=== PATIENT | female | born 1965 | race Caucasian/White ===

== ENCOUNTER 2016-06-08 13:30 | Observation (INO) | payer OTHER ==
[~2016-06-08] VITALS: Ht 162.6 cm; Wt 75.0 kg
[~2016-06-08 13:30] MED LIST: OXYC-57 PO
[2016-06-08] MEDS ORDERED: SODIUM CHLORIDE 0.9% 1000ML 1,000 ML IV STA (14:30)
[2016-06-08 14:48] LABS: BASO % 0.3 %; BASO ABS # 0.03 K/uL (0-0.2); COMPLETE YES; EOS % 1.1 %; HEMATOCRIT 40.7 % (37-47); IG% 0.2 %; LYMPH % 24.9 %; LYMPH ABS # 2.35 K/uL (1.2-3.4); MEAN CELL VOLUME 88.3 fL (80-100); MEAN CORPUSCULAR HEMOGLOBIN 30.2 pg (25-34); MEAN CORPUSCULAR HGB CONC 34.2 g/dl (32-36); MEAN PLATELET VOLUME 9.6 fL (7.4-10.4); NEUT % 66.5 %; PLATELET COUNT 301 K/uL (130-400); RED BLOOD COUNT 4.61 M/uL (4.2-5.4); WHITE BLOOD COUNT 9.42 K/uL (4.8-10.8)
[2016-06-08 14:58] LABS: PROTHROMBIN TIME (PATIENT) 10.8 SECONDS (9.0-12.0)
[2016-06-08 14:58] LABS: URINE APPEARANCE CLEAR (CLEAR); URINE BILIRUBIN NEG (NEG); URINE COLOR YELLOW; URINE NITRITE NEG (NEG); URINE PH 5.5 (4.5-7.5); URINE SPECIFIC GRAVITY 1.026 (1.000-1.030); UROBILINOGEN NEG (NEG)
[2016-06-08 15:06] LABS: MANUAL MICROSCOPIC REQUIRED? NO; REVIEW REQ? YES
[2016-06-08 15:08] LABS: ALT/SGPT 22 U/L (12-78); BLOOD UREA NITROGEN 16 mg/dl (7-18); BUN/CREATININE RATIO 18.8 (10-20); CALCIUM 9.1 mg/dl (8.5-10.1); CARBON DIOXIDE 27 mmol/L (21-32); CHLORIDE 108 mmol/L (98-107); CREATININE 0.83 mg/dl (0.60-1.20); GLUCOSE 109 mg/dl (70-99); POTASSIUM 3.6 mmol/L (3.5-5.1); SODIUM 145 mmol/L (136-145)
[2016-06-08 15:11] LABS: ALKALINE PHOSPHATASE 87 U/L (45-117); AST/SGOT 13 U/L (15-37)
[2016-06-08] MEDS ORDERED: OPTIRAY 320 IV PRN (16:00)
--- NOTE | 2016-06-08 16:05 | DIAGNOSTIC IMAGING REPORT ---
CT OF THE ABDOMEN AND PELVIS WITH CONTRAST CLINICAL HISTORY: Right lower quadrant abdominal pain. GI bleed. COMPARISON STUDY: None. TECHNIQUE: Following IV administration of 93 mL of Optiray-320, axial images of the abdomen and pelvis were obtained from the lung bases to the proximal femurs. Images were reviewed in the axial, sagittal, and coronal planes. IV contrast was administered without complication. CT DOSE: 1018.58 mGycm FINDINGS: There is mild elevation of the left hemidiaphragm. The liver, spleen, adrenal glands, kidneys and pancreas are unremarkable. There is no pancreatic or biliary ductal dilatation. The caliber and wall thickness of small and large bowel are normal. The appendix is normal. There is no evidence for a bowel obstruction. There is no lymphadenopathy. Skeletal structures are unremarkable. Major vasculature of the abdomen and pelvis is patent. IMPRESSION: 1. No acute process within the abdomen or pelvis. Normal appendix. 2. Mild elevation of the left hemidiaphragm. Electronically signed by: Marcell Luna M.D. 06/08/2016 4:04 PM Dictated Date/Time: 06/08/2016 3:59 PM
[2016-06-08] MEDS ORDERED: ACETAMINOPHEN 325 MG TAB PO PRN (17:45)
[2016-06-08] MEDS ORDERED: POLYETHYLENE (MIRALAX) 17 GM PACK PO PRN (17:45)
[2016-06-08] MEDS ORDERED: ONDANSETRON INJ 2 MG/ML 2 ML VIAL IV PRN (17:45)
[2016-06-08] MEDS ORDERED: ALUMINUM/MAGNESIUM/SIMETH (MAALOX MAX) 30 ML UDC PO PRN (17:45)
[2016-06-08] MEDS ORDERED: HydrALAZINE HCL 20 MG/ML VIAL IV. PRN (17:45)
[2016-06-08] MEDS ORDERED: MAGNESIUM HYDROXIDE SUSP 30 ML UDC PO PRN (17:45)
[2016-06-08] MEDS ORDERED: LORAZEPAM 2 MG/ML 1 ML VIAL IV PRN (17:45)
--- NOTE | 2016-06-08 18:01 | History and Physical ---
History & Physical Date & Time of Service: Jun 08, 2016 at 17:46 Chief Complaint: Pooping Blood Primary Care Physician: No Doctor, Assigned History of Present Illness Source: patient, family, clinic records, hospital records Patient is a pleasant 51 y/o female, with no significant PMHx, who presented to the ED because of GI bleed x1 day. According to patient, she noticed bright red bleeding w/ bowel movement that started on 06/07. She had 3 bowel movement yesterday, all with blood present. This morning she had a BM, with no blood. After work, she had another BM with blood present again. She notes her BMs are loose. She denies any dark/tarry stools. She has never experienced anything like this before. She denies h/o of colonoscopy. Patient denies any fever, chills, sweats, lightheadedness, dizziness, vision changes, CP, palpitations, edema, SOB, wheezing, cough, abdominal pain, nausea, vomiting, diarrhea, urinary symptoms, melena, numbness/tingling, weakness, muscle/joint pain, anxiety/depression, new skin discoloration/changes. Past Medical/Surgical History Surgical hx: 1. Family History Denies any significant family history Social History Smoking Status: Never Smoker Alcohol Use: occasionally Marital Status: Housing status: lives with family Occupational Status: employed Multi-Drug Resistant Organisms History of MDRO: No Allergies Coded Allergies: No Known Allergies (Unverified , 06/08/16) Home Medications No Active Prescriptions or Reported Meds Physical Exam Vital Signs Date Time Temp Pulse Resp B/P Pulse Ox O2 Delivery O2 Flow Rate FiO2 06/08/16 16:43 92 18 202/112 94 Room Air 179/101 06/08/16 14:56 87 06/08/16 14:50 82 171/89 95 06/08/16 13:44 36.9 83 18 177/95 96 Room Air General Appearance: no apparent distress Head: normocephalic, atraumatic Eyes: normal inspection, PERRL ENT: hearing grossly normal Neck: supple Respiratory/Chest: lungs clear, no respiratory distress, no accessory muscle use Cardiovascular: regular rate, rhythm Abdomen/GI: normal bowel sounds, non tender, soft Back: normal inspection Extremities/Musculoskelatal: no calf tenderness, no pedal edema Neurologic/Psych: alert, oriented x 3, + pertinent finding (anxious/tearful) Skin: normal color, warm/dry, no rash Diagnostics Laboratory Results Results Past 24 Hours Test 06/08/16 14:22 06/08/16 14:30 Range/Units Urine Color YELLOW Urine Appearance CLEAR CLEAR Urine pH 5.5 4.5-7.5 Urine Specific [place] 1.026 1.000-1.030 Urine Protein NEG NEG Urine Glucose (UA) NEG NEG Urine Ketones NEG NEG Urine Occult Blood NEG NEG Urine Nitrite NEG NEG Urine Bilirubin NEG NEG Urine Urobilinogen NEG NEG Urine Leukocyte Esterase SMALL NEG Urine WBC (Auto) 1-5 0-5 /hpf Urine RBC (Auto) 0-4 0-4 /hpf Urine Hyaline Casts (Auto) 0 0-5 /lpf Urine Epithelial Cells (Auto) 5-10 0-5 /lpf Urine Bacteria (Auto) NEG NEG Urine Crystals CALCIUM OXALATE NONE PRSENT White Blood Count 9.42 4.8-10.8 K/uL Red Blood Count 4.61 4.2-5.4 M/uL Hemoglobin 13.9 12.0-16.0 g/dL Hematocrit 40.7 37-47 % Mean Corpuscular Volume 88.3 80-100 fL Mean Corpuscular Hemoglobin 30.2 25-34 pg Mean Corpuscular Hemoglobin Concent 34.2 32-36 g/dl Platelet Count 301 130-400 K/uL Mean Platelet Volume 9.6 7.4-10.4 fL Neutrophils (%) (Auto) 66.5 % Lymphocytes (%) (Auto) 24.9 % Monocytes (%) (Auto) 7.0 % Eosinophils (%) (Auto) 1.1 % Basophils (%) (Auto) 0.3 % Neutrophils # (Auto) 6.26 1.4-6.5 K/uL Lymphocytes # (Auto) 2.35 1.2-3.4 K/uL Monocytes # (Auto) 0.66 0.11-0.59 K/uL Eosinophils # (Auto) 0.10 0-0.5 K/uL Basophils # (Auto) 0.03 0-0.2 K/uL RDW Standard Deviation 43.4 36.4-46.3 fL RDW Coefficient of Variation 13.4 11.5-14.5 % Immature Granulocyte % (Auto) 0.2 % Immature Granulocyte # (Auto) 0.02 0.00-0.02 K/uL Prothrombin Time 10.8 9.0-12.0 SECONDS Prothromb Time International Ratio 1.0 0.9-1.1 Activated Partial Thromboplast Time 26.6 21.0-31.0 SECONDS Partial Thromboplastin Ratio 1.0 Sodium Level 145 136-145 mmol/L Potassium Level 3.6 3.5-5.1 mmol/L Chloride Level 108 98-107 mmol/L Carbon Dioxide Level 27 21-32 mmol/L Anion Gap 10.0 3-11 mmol/L Blood Urea Nitrogen 16 7-18 mg/dl Creatinine 0.83 0.60-1.20 mg/dl Est Creatinine Clear Calc Drug Dose 96.5 ml/min Estimated GFR () 94.6 Estimated GFR (Non- 81.6 BUN/Creatinine Ratio 18.8 10-20 Random Glucose 109 70-99 mg/dl Calcium Level 9.1 8.5-10.1 mg/dl Total Bilirubin 0.5 0.2-1 mg/dl Direct Bilirubin < 0.1 0-0.2 mg/dl Aspartate Amino Transf (AST/SGOT) 13 15-37 U/L Alanine Aminotransferase (ALT/SGPT) 22 12-78 U/L Alkaline Phosphatase 87 45-117 U/L Total Protein 7.8 6.4-8.2 gm/dl Albumin 4.6 3.4-5.0 gm/dl Lipase 165 73-393 U/L Diagnostic Radiology CT OF THE ABDOMEN AND PELVIS WITH CONTRAST CLINICAL HISTORY: Right lower quadrant abdominal pain. GI bleed. COMPARISON STUDY: None. TECHNIQUE: Following IV administration of 93 mL of Optiray-320, axial images of the abdomen and pelvis were obtained from the lung bases to the proximal femurs. Images were reviewed in the axial, sagittal, and coronal planes. IV contrast was administered without complication. CT DOSE: 1018.58 mGycm FINDINGS: There is mild elevation of the left hemidiaphragm. The liver, spleen, adrenal glands, kidneys and pancreas are unremarkable. There is no pancreatic or biliary ductal dilatation. The caliber and wall thickness of small and large bowel are normal. The appendix is normal. There is no evidence for a bowel obstruction. There is no lymphadenopathy. Skeletal structures are unremarkable. Major vasculature of the abdomen and pelvis is patent. IMPRESSION: 1. No acute process within the abdomen or pelvis. Normal appendix. 2. Mild elevation of the left hemidiaphragm. Electronically signed by: Marcell Luna M.D. 06/08/2016 4:04 PM Dictated Date/Time: 06/08/2016 3:59 PM The status of this report is Signed. Draft = Not yet reviewed or approved by Radiologist. Signed = Reviewed and approved by Radiologist. EKG SARA LOMAX ID:[id number] 08-JUN-2016 14:41:22 [facility] Normal sinus rhythm Minimal voltage criteria for LVH, may be normal variant Borderline ECG No previous ECGs available 25mm/s 10mm/mV 150Hz 8.0 SP2 12SL 241 HD ARABELLA: 12 Referred by: Referred Self Unconfirmed Vent. rate 75 BPM NM interval 152 ms QRS duration 100 ms QT/QTc 424/473 ms P-R-T axes 24 -14 34 1965 (51 yr) Female Room: Loc: End Lathe Operator:RAMIN Garcia ind: Impression Assessment and Plan 51 y/o female, with no significant PMHx, who presented to the ED because of GI bleed x1 day. GI bleed: - Admit to med/surg - Hgb 13.9 at admission, repeat H&H at 2100 - Abdominal/pelvic CT- no acute processes - Stool heme occult positive in ED - Consult GI, appreciate recommendations -- ED physician spoke w/ GI--> plan for colonoscopy w/ Dr. Mcgraw on 06/09 -- 2L [place] tonight and 2L before 11 AM on 06/09 - Clear liquid diet - CBC tomorrow AM HTN- untreated, ?secondary to anxiousness: - IV Hydralazine PRN Anxiousness: IV Ativan 0.5 mg PRN GI Prophylaxis: Maalox PRN, IV Zofran PRN, Colace and/or Milk of Mag PRN DVT prophylaxis: GABRIEL and SCDs. Avoid chemical therapy due to GI bleed Code Status: LEVEL I, FULL Dispo: From home, lives w/ . No discharge needs anticipated Pa Physician Supervision Note: I interviewed and examined the patient. Discussed with Maria Alejandra Carpenter PAC and agree with findings and plan as documented in the note. Any exceptions or clarifications are listed here: None Pt presents with BRBPR, no pain, never had a colonoscopy, never been told she had hemorrhoids, hgb stable, GI medicine will have eval tomorrow. vitals are stable car is regular, lungs are clear abdomen is benign bright red blood per rectum, likely lower bleed, trend hgb, hydrate and colonoscopy tomorrow Documented By: Roger David Level of Care Med/Surg Resuscitation Status FULL RESUSCITATION VTE Prophylaxis VTE Risk Assessment Done? Y/N: Yes Risk Level: Low Given or contraindicated: T.E.D. Stockings, SCD's
--- NOTE | 2016-06-08 18:01 | EMERGENCY ROOM VISIT NOTE ---
History Report prepared by He: Juancarlos Lira Under the Supervision of: Dr. Jamal Leon D.O. First contact with patient: 14:17 Chief Complaint: RECTAL BLEEDING Stated Complaint: POOPING BLOOD Nursing Triage Summary: Pt reports "yesterday I started pooping blood". denies blood thinners. reports it is bright red in color. reports some right lower abd pain. "it's not all the time" History of Present Illness The patient is a 51 year old female who presents to the Emergency Room with complaints of intermittent rectal bleeding starting yesterday. The patient states that she has been having runny stools that are a bright red. She states that she had two bouts yesterday, and she had one bout today. She states that this morning she had a normal bowel movement, and then after work today she had a bloody stool. She additionally is complaining of intermittent pinching abdominal pain that started yesterday. The patient denies any clots, and she states that she has never had anything like this before. She denies taking any medications including blood thinners, and she denies any other medical problems. The patient states that she has had a , and she denies any history of colonoscopies. Pt denies headache, change in vision, fevers, chest pain, shortness of breath, nausea, vomiting, and pain with urination. Source of History: patient Onset: yesterday Position: other (rectum) Quality: other (bleeding) Timing: intermittent Associated Symptoms: + abdominal pain, No melena Review of Systems See HPI for pertinent positives & negatives. A total of 10 systems reviewed and were otherwise negative. Past Medical & Surgical Medical Problems: (1) Rectal bleed Surgical Problems: (1) History of Social History Smoking Status: Never Smoker Marital Status: Housing Status: lives with family Occupation Status: unemployed Current/Historical Medications No Active Prescriptions or Reported Meds Allergies Coded Allergies: No Known Allergies (Unverified , 06/08/16) Physical Exam Vital Signs Date Time Temp Pulse Resp B/P Pulse Ox O2 Delivery O2 Flow Rate FiO2 06/08/16 16:43 92 18 202/112 94 Room Air 179/101 06/08/16 14:56 87 06/08/16 14:50 82 171/89 95 06/08/16 13:44 36.9 83 18 177/95 96 Room Air Physical Exam GENERAL: Sitting up in bed, no acute distress, non-toxic EYE EXAM: normal conjunctiva OROPHARYNX: no exudate, no erythema, lips, buccal mucosa, and tongue normal and mucous membranes are moist NECK: supple, no nuchal rigidity, no adenopathy, non-tender LUNGS: Clear to auscultation. Normal chest wall mechanics HEART: no murmurs, S1 normal and S2 normal ABDOMEN: abdomen soft, non-tender, normo-active bowel sounds, no masses, no rebound or guarding. BACK: Back is symmetrical on inspection and there is no deformity, no midline tenderness, no CVA tenderness. RECTAL: There is heme positive stool. No hemorrhoids or fissures. SKIN: no rashes and no bruising UPPER EXTREMITIES: upper extremities are grossly normal. LOWER EXTREMITIES: No pitting edema. NEURO EXAM: Normal sensorium, cranial nerves II-XII grossly intact, normal speech, no gross weakness of arms, no gross weakness of legs. No drift. Finger to nose intact. Medical Decision & Procedures ER Provider Diagnostic Interpretation: CT results have been interpreted by the radiologist and reviewed by me. Laboratory Results 06/08/16 14:30 Red Blood Count 4.61, Mean Corpuscular Volume 88.3, Mean Corpuscular Hemoglobin 30.2, Mean Corpuscular Hemoglobin Concent 34.2, Mean Platelet Volume 9.6, Neutrophils (%) (Auto) 66.5, Lymphocytes (%) (Auto) 24.9, Monocytes (%) (Auto) 7.0, Eosinophils (%) (Auto) 1.1, Basophils (%) (Auto) 0.3, Neutrophils # (Auto) 6.26, Lymphocytes # (Auto) 2.35, Monocytes # (Auto) 0.66, Eosinophils # (Auto) 0.10, Basophils # (Auto) 0.03 06/08/16 14:30 Test 06/08/16 14:22 06/08/16 14:30 Urine Color YELLOW Urine Appearance CLEAR (CLEAR) Urine pH 5.5 (4.5-7.5) Urine Specific [place] 1.026 (1.000-1.030) Urine Protein NEG (NEG) Urine Glucose (UA) NEG (NEG) Urine Ketones NEG (NEG) Urine Occult Blood NEG (NEG) Urine Nitrite NEG (NEG) Urine Bilirubin NEG (NEG) Urine Urobilinogen NEG (NEG) Urine Leukocyte Esterase SMALL (NEG) Urine WBC (Auto) 1-5 /hpf (0-5) Urine RBC (Auto) 0-4 /hpf (0-4) Urine Hyaline Casts (Auto) 0 /lpf (0-5) Urine Epithelial Cells (Auto) 5-10 /lpf (0-5) Urine Bacteria (Auto) NEG (NEG) Urine Crystals CALCIUM OXALATE (NONE White Blood Count 9.42 K/uL (4.8-10.8) Red Blood Count 4.61 M/uL (4.2-5.4) Hemoglobin 13.9 g/dL (12.0-16.0) Hematocrit 40.7 % (37-47) Mean Corpuscular Volume 88.3 fL (80-100) Mean Corpuscular Hemoglobin 30.2 pg (25-34) Mean Corpuscular Hemoglobin Concent 34.2 g/dl (32-36) Platelet Count 301 K/uL (130-400) Mean Platelet Volume 9.6 fL (7.4-10.4) Neutrophils (%) (Auto) 66.5 % Lymphocytes (%) (Auto) 24.9 % Monocytes (%) (Auto) 7.0 % Eosinophils (%) (Auto) 1.1 % Basophils (%) (Auto) 0.3 % Neutrophils # (Auto) 6.26 K/uL (1.4-6.5) Lymphocytes # (Auto) 2.35 K/uL (1.2-3.4) Monocytes # (Auto) 0.66 K/uL (0.11-0.59) Eosinophils # (Auto) 0.10 K/uL (0-0.5) Basophils # (Auto) 0.03 K/uL (0-0.2) RDW Standard Deviation 43.4 fL (36.4-46.3) RDW Coefficient of Variation 13.4 % (11.5-14.5) Immature Granulocyte % (Auto) 0.2 % Immature Granulocyte # (Auto) 0.02 K/uL (0.00-0.02) Prothrombin Time 10.8 SECONDS (9.0-12.0) Prothromb Time International Ratio 1.0 (0.9-1.1) Activated Partial Thromboplast Time 26.6 SECONDS (21.0-31.0) Partial Thromboplastin Ratio 1.0 Anion Gap 10.0 mmol/L (3-11) Est Creatinine Clear Calc Drug Dose 96.5 ml/min Estimated GFR () 94.6 Estimated GFR (Non- 81.6 BUN/Creatinine Ratio 18.8 (10-20) Calcium Level 9.1 mg/dl (8.5-10.1) Total Bilirubin 0.5 mg/dl (0.2-1) Direct Bilirubin < 0.1 mg/dl (0-0.2) Aspartate Amino Transf (AST/SGOT) 13 U/L (15-37) Alanine Aminotransferase (ALT/SGPT) 22 U/L (12-78) Alkaline Phosphatase 87 U/L (45-117) Total Protein 7.8 gm/dl (6.4-8.2) Albumin 4.6 gm/dl (3.4-5.0) Lipase 165 U/L (73-393) Laboratory results per my review. Medications Administered Medications (Trade) Dose Ordered Sig/Mac Route Start Time Stop Time Status Last Admin Dose Admin Sodium Chloride (Nss 1000ml) 1,000 ml @ 999 mls/hr Q1H1M STAT IV 06/08/16 14:30 06/08/16 15:30 DC 06/08/16 14:50 999 MLS/HR ECG Indication: other (rectal bleeding) Rate (beats per minute): 75 Rhythm: sinus rhythm Findings: left axis deviation, no ectopy ED Course ED COURSE: Vital signs were reviewed and showed hypertension The patients medical record was reviewed The above diagnostic studies were performed and reviewed. ED treatments and interventions as stated above. 1417: The patient was evaluated in room C9. A complete history and physical examination was performed. 1430: Sodium Chloride 1000 ml @ 999 mls/hr IV 1634: I discussed the patient's case with Dr. Mcgraw [facility] 1649: I discussed the patient's case with Dr. Wagner, Gastroenterology, and he suggests having the hospitalist put in for a colonoscopy tomorrow with Dr. Mcgraw. He suggests that the patient has 2L of GoLYTELY tonight, and 2L by tomorrow at 1100. 1653: I discussed the patient's case with Dr. David. He is going to evaluate the patient for further treatment 1705: Upon reevaluation, the patient is resting.I discussed my findings with the patient and she understands and agrees with the treatment plan. Based on the patients age, coexisting illnesses, exam and lab findings the decision to treat as an inpatient was made. The patient remained stable while under my care. The patient will be evaluated for further management. Medical Decision Differential diagnosis includes etiologies such as diverticulosis, AVM, coagulopathy, colitis, inflammatory bowel disease, malignancy, Magalie-Gutiérrez tear, esophagitis, peptic ulcer disease, variceal bleed, gastritis, epistaxis, fissure, hemorrhoids, as well as others were entertained. Patient is a 51-year-old female who presents the ER for bright red blood per rectum which has been present since yesterday. She notes she has never had this before. No previous colonoscopy. No blood thinners. Minimal pain in the right lower quadrant. CT of her abdomen pelvis was unremarkable. Vitals are stable. CBC along with BMP LFTs and bilirubin were unremarkable. Lipase is normal. Updated the patient regards to findings. Discussed case with GI and they recommended 2 L of GoLYTELY tonight and 2 L in the morning prior to 11 AM for colonoscopy in the afternoon. Updated the patient regards to my findings. She remained hemodynamically stable and were agreeable for observation overnight. Consults Time Called: 1630 Consulting Physician: Bhavesh Barker Returned Call: 1634 I discussed the patient's case with Bhavesh Barker Additional Consults: Time Called: 1645 Consulted Physician: Dr. Wagner, Gastroenterology Returned Call: 1641 Additional Comments: I discussed the patient's case with Dr. Wagner, Gastroenterology, and he suggests having the hospitalist put in for a colonoscopy tomorrow with Dr. Mcgraw. He suggests that the patient has 2L of GoLYTELY tonight, and 2L by tomorrow at 1100. Time Called: 1650 Consulted Physician: Dr. David Returned Call: 1652 Additional Comments: I discussed the patient's case with Dr. David. He is going to evaluate the patient for further treatment Impression Primary Impression: Lower GI bleed Scribe Attestation The scribe's documentation has been prepared under my direction and personally reviewed by me in its entirety. I confirm that the note above accurately reflects all work, treatment, procedures, and medical decision making performed by me. Departure Information Dispostion Being Evaluated By Hospitalist Prescriptions No Active Prescriptions or Reported Meds Referrals No Doctor, Assigned (PCP)
[2016-06-08 19:58] VITALS: BP 179/93; PULSE 88; TEMP 36.8; O2SAT 96
[2016-06-08 20:05] VITALS: BP 179/93; PULSE 88; TEMP 36.6; O2SAT 96
[2016-06-08 20:15] VITALS: BP 179/93; PULSE 88; TEMP 36.6; O2SAT 96; Ht 162.6 cm; Wt 75.0 kg
[2016-06-08 21:09] LABS: HEMATOCRIT 39.7 % (37-47)
[2016-06-08] MEDS: LAVAGE SOLUTION 4000ML PO SCH (21:51)
[2016-06-08] MEDS ORDERED: IV FLUIDS COMPLETED PRN (23:15)
[2016-06-09 00:55] VITALS: BP 177/94; PULSE 81; TEMP 37; O2SAT 98
[2016-06-09] MEDS ORDERED: LORAZEPAM INJ 0.5 MG in SYRINGE 0.75 ML IV PRN (02:30)
[2016-06-09] MEDS: LAVAGE SOLUTION 4000ML PO SCH (03:40)
[2016-06-09] MEDS ORDERED: LAVAGE SOLUTION 4000ML PO SCH (07:00)
[2016-06-09 07:26] VITALS: BP 181/91; PULSE 87; TEMP 36.7; O2SAT 96
[2016-06-09 07:26] LABS: MEAN CELL VOLUME 87.7 fL (80-100); MEAN CORPUSCULAR HEMOGLOBIN 29.6 pg (25-34); MEAN CORPUSCULAR HGB CONC 33.8 g/dl (32-36); MEAN PLATELET VOLUME 9.6 fL (7.4-10.4); PLATELET COUNT 276 K/uL (130-400); RED BLOOD COUNT 4.56 M/uL (4.2-5.4)
[2016-06-09 07:56] LABS: BUN/CREATININE RATIO 9.9 (10-20); CALCIUM 8.8 mg/dl (8.5-10.1); CREATININE 0.73 mg/dl (0.60-1.20); POTASSIUM 3.6 mmol/L (3.5-5.1)
--- NOTE | 2016-06-09 12:47 | Discharge Instructions ---
Discharge Instructions Date of Service Jun 09, 2016. Admission Reason for Admission: Rectal Bleed Discharge Discharge Diagnosis / Problem: Hematochezia Discharge Goals Goal(s): Decrease discomfort, Improve function, Increase independence Activity Recommendations Activity Limitations: resume your previous activity . Instructions / Follow-Up Instructions / Follow-Up Rectal Bleed: - During admission your bleeding has stopped and your hemoglobin (blood counts) remained within normal limits - Your colonoscopy was normal without direct visualization of a cause of the blood in your stool - Biopsies of the colon tissue was obtained and further intervention will be planned according to the report. - upon results of biopsy you will be contacted - It is possible that this could be related to small hemorrhoids that are hard to see. Diet: - Recommend increasing fiber in your diet to help soften bowel movements and make bowel movements easier. - Keep hydrated and avoid foods that tend to be constipating for you. - You may use over the counter stool softeners if needed Follow-Up: - Please follow-up with Dr. Ramsey on June 17, 2016 at 1:05 PM -- It is important to keep this appointment to get established with a family doctor. Current Hospital Diet Patient's current hospital diet: Clear Liquid Diet Discharge Diet Recommended Diet: Regular Diet Pending Studies Studies pending at discharge: yes List of pending studies: Colon Tissue Biopsy Medical Emergencies . Who to Call and When: Medical Emergencies: If at any time you feel your situation is an emergency, please call 911 immediately. . Non-Emergent Contact Non-Emergency issues call your: Primary Care Provider Call Non-Emergent contact if: you have a fever, your pain is concerning you, you have any medication questions . . "Provider Documentation" section prepared by Vero Savage. VTE Core Measure Inpt VTE Proph given/why not?: Francia Marino, SCD's
--- NOTE | 2016-06-09 14:42 | Discharge Summary ---
Discharge Summary Date of Service Jun 09, 2016. (Vero Camargo PA-C) Discharge Summary Admission Date: Jun 08, 2016 at 17:44 Discharge Date: Jun 09, 2016 Discharge Disposition: Home Principal Diagnosis: Hematochezia Procedures: 1. CT OF THE ABDOMEN AND PELVIS WITH CONTRAST CLINICAL HISTORY: Right lower quadrant abdominal pain. GI bleed. COMPARISON STUDY: None. TECHNIQUE: Following IV administration of 93 mL of Optiray-320, axial images of the abdomen and pelvis were obtained from the lung bases to the proximal femurs. Images were reviewed in the axial, sagittal, and coronal planes. IV contrast was administered without complication. CT DOSE: 1018.58 mGycm FINDINGS: There is mild elevation of the left hemidiaphragm. The liver, spleen, adrenal glands, kidneys and pancreas are unremarkable. There is no pancreatic or biliary ductal dilatation. The caliber and wall thickness of small and large bowel are normal. The appendix is normal. There is no evidence for a bowel obstruction. There is no lymphadenopathy. Skeletal structures are unremarkable. Major vasculature of the abdomen and pelvis is patent. IMPRESSION: 1. No acute process within the abdomen or pelvis. Normal appendix. 2. Mild elevation of the left hemidiaphragm. 2. COLONOSCOPY Impression: - The entire examined colon is normal. - The examined portion of the ileum was normal. - The distal rectum and anal verge are normal on retroflexion view. - The descending colon and ascending colon are normal. Biopsied. Consultations: 1. Gastroenterology (Vero Camargo PA-C) Medication Reconciliation Medication Profile: No Active Prescriptions or Reported Meds Discharge Exam Review of Systems: Constitutional: No chills, No fever ENT: No nasal symptoms, No sore throat, No trouble swallowing Respiratory: No shortness of breath Cardiovascular: No chest pain Abdomen: No GI bleeding, No constipation, No diarrhea, No nausea, No pain, No vomiting Musculoskeletal: No calf pain, No swelling Genitourinary - Female: No dysuria Neurologic: No vertigo Integumentary: No rash Physical Exam: General Appearance: WD/WN, no apparent distress Eyes: sclerae normal ENT: hearing grossly normal Neck: supple, no JVD, trachea midline Respiratory/Chest: lungs clear, normal breath sounds, no respiratory distress, no accessory muscle use Cardiovascular: regular rate, rhythm, no gallop, no murmur Abdomen / GI: normal bowel sounds, non tender, soft Extremities: no calf tenderness, no pedal edema Neurologic/Psychiatric: alert, oriented x 3 Skin: normal color, warm/dry (Vero Camargo PA-C) Hospital Course ADMISSION: Patient is a pleasant 51 y/o female, with no significant PMHx, who presented to the ED because of GI bleed x1 day. According to patient, she noticed bright red bleeding w/ bowel movement that started on 06/07. She had 3 bowel movement yesterday, all with blood present. This morning she had a BM, with no blood. After work, she had another BM with blood present again. She notes her BMs are loose. She denies any dark/tarry stools. She has never experienced anything like this before. She denies h/o of colonoscopy. Patient denies any fever, chills, sweats, lightheadedness, dizziness, vision changes, CP , palpitations, edema, SOB, wheezing, cough, abdominal pain, nausea, vomiting, diarrhea, urinary symptoms, melena, numbness/tingling, weakness, muscle/joint pain, anxiety/depression, new skin discoloration/changes. HOSPITAL COURSE: Ms. Cruz was admitted for BRBPR. GI was consulted and an order placed for bowel prep and colonoscopy which was completed on 06/09/2016. Colonoscopy without abnormal findings and biopsies obtained. No underlying cause of BRBPR appreciated. During admission, patient without further hematochezia or new development of melena. Recommendations given of consuming a diet that is easy to digest with the addition of fiber to reduce constipation and hard bowel movements. During admission, patient noted to be hypertensive however vital signs remained stable. Question of underlying anxiety/ anxiousness versus untreated hypertension. Patient is not establish with PCP but requested establishment. Utilized case management for PCP establishment with Dr. Ramsey ([facility]) on 06/17/2016. She is hemodynamically stable, no new complaints, and is optimal for discharge home with outpatient follow-up. DISPOSITION: - Discussion with GI - question vaginal bleeding as source however patient is adamant this is not the case - repeat Hemoccult negative however was positive in ED -- Would recommend outpatient gynecological exam given age and lack of outpatient follow-up previously - Continued monitoring of hypertension - as patient was hypertensive here and likely has undiagnosed hypertension - Colon biopsies pending - GI to contact patient when results available Total Time Spent: Greater than 30 minutes This includes examination of the patient, discharge planning, medication reconciliation, and communication with other providers. (Vero Camargo, SKYLAR-C) chart reviewed throughout the day and case d/w Francis Camargo extensively and multiple times today. was planning on seeing pt after colonoscopy - i was unable to get to her immediately post scope and she was quite anxious to leave the hospital - was gone before i was able to see her. agree w ms camargo's plans and GI input. as far as BP - would recommend ambulatory monitoring, may have all been stress response since predominantly systolic elevations, but also certainly if truly hypertensive was asymptomatic. would have f/u w PCP in this regard. (Jamal Rebolledo, D.O.) Discharge Instructions Please refer to the electronic Patient Visit Report (Discharge Instructions) for additional information. (Vero Camargo, SKYLAR-C) Additional Copies To Walker Ramsey M.D.
[2016-06-09] MEDS ORDERED: MIDAZOLAM HCL 1 MG/ML 2ML VIAL ONE (15:13)
--- NOTE | 2016-06-09 15:28 | History & Physical Bridge Note ---
H&P Re-Evaluation Bridge Note: I have examined the patient, reviewed the History & Physical and in the interval since the performance of the History & Physical I have noted the following changes of clinical significance: Colonoscopy for painless rectal bleeding ordered by Dr Wagner. Pt with painless rectal bleeding on one event. mild change in BMs ; pt on diet meds but no unintentional weight loss. No FH CRC; no prior colon exam AAO x3 Nl s1s2 Lungs CTA Abd soft NT/ND + BS - CCE Plan for colonoscopy today.
[2016-06-09] MEDS ORDERED: EpHEDrine SULFATE INJ 50 MG/ML AMP IV PRN (15:30)
[2016-06-09] MEDS ORDERED: ATROPINE SULFATE 0.1 MG/ML 5ML SYR IV PRN (15:30)
[2016-06-09] MEDS ORDERED: LIDOCAINE HCL 2% 2 ML VIAL (20MG/ML) ONE (15:33)
[2016-06-09] MEDS ORDERED: PROPOFOL IV EMULSION 10 MG/ML 20 ML VIAL IV ONE ×2 (15:33)
--- NOTE | 2016-06-09 15:35 | GI REPORT ---
Procedure Date: 06/09/2016 2:56 PM Procedure: Colonoscopy Indications: This is the patient's first colonoscopy, Hematochezia, No family history of colorectal cancer, No family history of colon cancer, Change in bowel habits Medicines: Propofol per Anesthesia Complications: No immediate complications. Estimated blood loss: Minimal. Estimated Blood Loss: Estimated blood loss was minimal. Procedure: Pre-Anesthesia Assessment: - Prior to the procedure, a History and Physical was performed, and patient medications and allergies were reviewed. The patient's tolerance of previous anesthesia was also reviewed. The risks and benefits of the procedure and the sedation options and risks were discussed with the patient. All questions were answered, and informed consent was obtained. Prior Anticoagulants: The patient has taken no previous anticoagulant or antiplatelet agents. ASA Grade Assessment: II - A patient with mild systemic disease. After reviewing the risks and benefits, the patient was deemed in satisfactory condition to undergo the procedure. After I obtained informed consent, the scope was passed under direct vision. Throughout the procedure, the patient's blood pressure, pulse, and oxygen saturations were monitored continuously. The Scope was introduced through the anus and advanced to the terminal ileum, with identification of the appendiceal orifice and IC valve. The colonoscopy was performed without difficulty. The patient tolerated the procedure well. The quality of the bowel preparation was good. Findings: The perianal and digital rectal examinations were normal. Pertinent negatives include normal sphincter tone, no palpable rectal lesions and no anal lesion or abnormality was detected. The colon (entire examined portion) appeared normal. The terminal ileum appeared normal. The retroflexed view of the distal rectum and anal verge was normal and showed no anal or rectal abnormalities. The descending colon and ascending colon appeared normal. Biopsies were taken with a cold forceps for histology. Estimated blood loss was minimal. Verification of patient identification for the specimen was done by the physician and train control technician using the patient's name and medical record number. Impression: - The entire examined colon is normal. - The examined portion of the ileum was normal. - The distal rectum and anal verge are normal on retroflexion view. - The descending colon and ascending colon are normal. Biopsied. Recommendation: - Await pathology results. - Repeat colonoscopy for surveillance based on pathology results. MD Isidro Porras MD 06/09/2016 3:35:20 PM This report has been signed electronically. Note Initiated On: 06/09/2016 2:56 PM I attest to the content of the Intraoperative Record and orders documented therein, exceptions below
--- NOTE | 2016-06-09 15:39 | Anesthesiology Progress Note ---
Anesthesia Post Op Note Date & Time Jun 09, 2016 at 15:39 Vital Signs Pain Intensity: 0.0 Vital Signs Past 12 Hours Date Time Temp Pulse Resp B/P Pulse Ox O2 Delivery O2 Flow Rate FiO2 06/09/16 15:29 72 16 138/81 98 Room Air 06/09/16 14:26 36.5 75 18 175/77 97 Room Air 06/09/16 08:00 Room Air 06/09/16 07:26 36.7 87 18 181/91 96 Room Air Notes Mental Status: alert / awake / arousable, participated in evaluation Pt Amnestic to Procedure: Yes Nausea / Vomiting: adequately controlled Pain: adequately controlled Airway Patency, RR, SpO2: stable & adequate BP & HR: stable & adequate Hydration State: stable & adequate Anesthetic Complications: no major complications apparent
[2016-06-09 16:34] VITALS: BP 162/79; PULSE 73; TEMP 36.6; O2SAT 95
[2016-06-09 16:45] VITALS: BP 162/79; PULSE 73; TEMP 36.6; O2SAT 95
--- NOTE | 2016-06-09 17:29 | GASTROINTESTINAL CONSULTATION ---
DATE OF CONSULTATION: 06/09/2016 REQUESTING FOR: Painless rectal bleeding. HISTORY OF PRESENT ILLNESS: Ms. Cruz is a 51-year-old white female who reports an acute onset of rectal bleeding which was painless in nature. The patient had a bowel movement and upon wiping realized there was blood on the toilet tissue and in the water. The patient had no rectal pain, anal pain or cramping associated with the symptoms The patient was in her usual state of health. The patient does not describe to health care and does not have a primary care provider and reports that she has no known medical problems. The patient did not feel lightheadedness or dizziness, but presented to the Emergency Room. She had 3 bowel movements that were bloody and today's bowel movement had no blood. She described that her bowel movements have been slightly loose recently. She, however, denies melena, hematemesis, coffee-ground emesis, odynophagia or dysphagia. She has had no prior symptoms and no prior colonoscopy. She is unaware of any family history of colorectal cancer or inflammatory bowel disease. PAST MEDICAL HISTORY: Includes . She does not report any other known past medical or surgical history. ALLERGIES: She has no known drug allergies. HOME MEDICATIONS: Her only home medication is a medication used for weight loss, although the details of this are not clear. SOCIAL HISTORY: The patient denies tobacco or alcohol use. She is , lives with her family and is currently employed. FAMILY HISTORY: Otherwise noncontributory. REVIEW OF SYSTEMS: Otherwise noncontributory based on 14-point exam except for mentioned above. The patient denies dysuria, hematuria, joint aches, unintentional weight loss, abnormal skin or hair manifestations, abnormal neurologic symptoms. PHYSICAL EXAMINATION: VITAL SIGNS: On admission to the hospital yesterday afternoon, patient's blood pressure 177/95, temperature 36.9, heart rate 83, respirations 18, 96% on room air. GENERAL: The patient is awake, alert and oriented x3. HEENT: Oral mucosa moist. There is no cervical or supraclavicular adenopathy. I do not appreciate thyromegaly. Sclerae are anicteric. Conjunctiva moist. HEART: Normal S1, S2. LUNGS: Clear to auscultation without rales, rhonchi or wheezes. ABDOMEN: Soft, flat, nontender, nondistended, normoactive bowel sounds. There is no rebound or guarding. I do not appreciate hepatosplenomegaly. The abdomen is obese. There are no abdominal bruits or masses. I do not appreciate shifting dullness. EXTREMITIES: Without clubbing, cyanosis. Trace edema bilaterally. RECTAL: Deferred at this time. IMAGING STUDIES: Imaging studies in the Emergency Room revealed a CT scan that showed an elevated left hemidiaphragm with the liver, spleen, adrenals, pancreas were all unremarkable. There is no ductal dilation in the pancreas or liver or biliary system. The colon and small bowel appear normal. There is no adenopathy. LABORATORY STUDIES: On admission, white count 9.4 with hemoglobin of 13.9 and hematocrit of 40.7, MCV 88, platelets are 301,000. Repeat labs this morning showed stable hemoglobin at 13.5, MCV 87.7, platelets 276,000. Coagulation panel on admission, INR 1.1, normal PTT. Urinalysis showed small leukocyte esterase, 5-10 epithelial cells with calcium oxalate crystals. There is no bacteria and blood described. LABORATORY STUDIES: On admission, BUN and creatinine 16 and 0.8, potassium 3.6. LFTs all normal. Alkaline phosphatase 87, ALT 22, AST 13, total and direct bilirubin 0.5 and 0.1, albumin is normal at 4.6, lipase 165. Repeat labs today again show other than a mild elevation in random glucose, a normal BUN and creatinine. IMPRESSION: The patient with an acute onset of 1-day history of painless bright red blood per rectum. The patient has had some mild modification in her stools recently, perhaps more loose than firm but no unintentional weight loss, abdominal pain, nausea, vomiting or suspicion of an upper gastrointestinal bleeding disorders or colitis. Laboratory studies show no evidence of leukocytosis and hemoglobin stable with a normal MCV. The patient has not had a prior colonoscopy. There is no family history of colorectal cancer by her understanding and inflammatory bowel disease is also not present in the family. I believe it is reasonable to perform a colonoscopy and will do so at this time as ordered by Dr. Wagner yesterday afternoon. The patient underwent a bowel prep overnight. Depending on these findings, further recommendations to follow. We would monitor hemoglobin daily to ensure stability. All questions answered. Thank you for allowing me to participate in this patient's care.
== END 2016-06-09 17:00 | disposition home or self-care (01) ==
LOC: ENRESERVDT → ENRESERVTM → C.EDB 13:31 → C.MS2W 17:44
PROVIDERS: ADMIT Internal Medicine; ATTEND Family Medicine
DX: K92.1 Melena (principal); R10.31 Right lower quadrant pain; I10 Essential (primary) hypertension; F41.9 Anxiety disorder, unspecified